=== PATIENT | male | born 2005 | race African-American/Black ===

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

== ENCOUNTER 2024-01-14 18:04 | Emergency (ER) | payer MEDICAID ==
[~2024-01-14] VITALS: Ht 180.3 cm; Wt 89.1 kg
[~2024-01-14 18:04] MED LIST: CYCL-839 PO; IBUP-1455 PO
[2024-01-14 22:32] VITALS: BP 118/76; PULSE 72; RESP 16; TEMP 98.4
[2024-01-14] MEDS ORDERED: HYDR2.5C39 TOP (22:35)
[2024-01-14] MEDS ORDERED: IBUP-1456 PO (22:35)
[2024-01-14 22:54] VITALS: O2SAT 98
== END 2024-01-14 23:03 | disposition home or self-care (01) ==
LOC: ER 18:04
DX: K64.4 Residual hemorrhoidal skin tags (principal)

== ENCOUNTER 2024-08-24 15:16 | Emergency (ER) | payer MEDICAID ==
[~2024-08-24] VITALS: Ht 180.3 cm; Wt 79.7 kg
[~2024-08-24 15:16] MED LIST changes: +HYDR2.5C39 TOP; +IBUP-1456 PO
[2024-08-24] MEDS: ONDANSETRON ODT 4 MG TAB PO ONE (19:42)
[2024-08-24] MEDS: ACETAMINOPHEN 325 MG TAB PO ONE (19:43)
[2024-08-24] MEDS ORDERED: ZOFR4T PO (19:44)
[2024-08-24] MEDS ORDERED: ACET500T58 PO (19:44)
--- NOTE | 2024-08-24 19:45 | ED.PDOC ---
History of Present Illness HPI Comments 19-year-old male presents to ER with complaints of flu-like symptoms x4 days. Patient reports he has been experiencing intermittent fever, nausea/vomiting/diarrhea, body aches, dry cough and decreased appetite x 4 days. He rates his current body aches pain a 7/10. Denies use of medications for current symptoms. Patient also states he had a nosebleed earlier today. Patient presents to ER ambulatory on arrival, alert oriented x4, with steady gait, in no distress and is noted to have a low-grade fever on arrival at 99.7 F, with no nose bleeding noted. Denies shortness of breath, headache, dizziness, neck pain, chest pain, hemoptysis, hematemesis, abdominal pain, known exposure to sick contacts, changes in urination, bloody diarrhea or any further symptoms/complaints Chief Complaint: Flu like Time Seen by MD: 18:12 Primary Care Provider: UNKNOWN Reviewed Notes: Nurses Notes, Medications, Allergies Information Source: Patient Mode of Arrival: Ambulatory Past Medical History PAST MEDICAL HISTORY: Denies Surgical History: Denies all surgeries Family History Family History: Unknown Social History Smoker: Non-Smoker Alcohol: Denies ETOH Use Drugs: Denies Drug Use Lives In: Home Constitutional: See HPI EENTM: See HPI Respiratory: See HPI Cardiovascular: No Symptoms Reported Gastrointestinal: See HPI Genitourinary: No Symptoms Reported Neurological: No Symptoms Reported Musculoskeletal: No Symptoms Reported Integumentary: No Symptoms Reported Allergic/Immunocompromised: others (DENIES) Hematologic/Lymphatic: No Symptoms Reported Endocrine: No Symptoms Reported Psychiatric: No symptoms Reported Physical Exam General Appearance: No Apparent Distress, Normal HEENT: Normal ENT Inspection, PERRL/EOMI, Pharynx Normal, TMs Normal Neck: Full Range of Motion, Non-Tender, Normal Respiratory: Chest Non-Tender, Lungs Clear, No Accessory Muscle Use, No Respiratory Distress, Normal Breath Sounds Cardiovascular: No Murmur, No Gallop, Regular Rate/Rhythm Breast Exam: Deferred Gastrointestinal: Non Tender, No Pulsatile Mass, Soft Genitalia: Deferred Pelvic: Deferred Rectal: Deferred Extremities: Normal capillary refill, Normal range of motion Neurologic: Alert, bath tester II-XII nml as Tested, No Motor Deficits, Normal Affect, Normal Mood, No Sensory Deficits Cerebellar Function: Normal Reflexes: Normal Skin: Dry, Normal Color, Warm Peripheral Pulses: 2+ Radial (R), 2+ Radial (L), 2+ Brachial (R), 2+ Brachial (L) Lymphatic: No Adenopathy Was a procedure done? Was a procedure done?: No Sedation Sedation?: No Fever Differential Dx Differential Diagnosis: Pneumonia, Sepsis, Pharyngitis, Other (COVID-19) X-Ray, Labs, Meds, VS Vital Signs Date Time Temp Pulse Resp B/P (MAP) Pulse Ox O2 Delivery O2 Flow Rate FiO2 08/24/24 20:05 100.4 100.4 08/24/24 18:26 96 14 98 Room Air 08/24/24 18:26 99.7 96 14 125/72 (89) 98 99.7 08/24/24 15:54 99.7 96 14 125/72 (89) 98 Lab Test 08/24/24 19:42 Range/Units Influenza Type A Antigen Positive Negative Influenza Type B Antigen Negative Negative SARS-CoV-2 Antigen (Rapid) Negative NEGATIVE Current Medications Medications (Trade) Dose Ordered Sig/Edward Route Start Time Stop Time Status Last Admin Acetaminophen (Tylenol Tablet) 650 mg ONCE ONCE PO 08/24/24 19:45 08/24/24 19:46 DC 08/24/24 19:43 Ondansetron HCl (Zofran Po) 4 mg ONCE ONCE PO 08/24/24 19:45 08/24/24 19:46 DC 08/24/24 19:42 SWAB RESULTS REVIEWED-INFLUENZA A POSITIVE Hep-Lock IV ordered NS 1 L IV ordered Zofran 4 mg p.o. ordered Tylenol 650 mg p.o. ordered Patient had improvement in symptoms, tolerating p.o. intake well and in no distress prior to discharge Diet education discussed Advised to follow up with PCP in 1-2 days Patient verbalized understanding and agreeable with current plan of care Advised to return to ER immediately if symptoms worsen Time of 1ST Reevaluation: 19:20 Reevaluation 1ST: N/A Time of 2ND Reevaluation: 21:38 Reevaluation 2ND: Improved Patient Education/Counseling: Diagnosis, Treatment, Prognosis, Need For Follow Up Family Education/Counseling: No Family Present Departure 1 Departure Time of Disposition: 21:40 Impression: Primary Impression: Influenza A Disposition: 01 HOME / SELF CARE / HOMELESS Condition: Stable e-Prescriptions Oseltamivir Phosphate (Tamiflu) 75 Mg Cap 1 CAP PO BID for 5 Days, #10 CAP 0 Refills Prov: PABLO CARBONE 08/24/24 Ondansetron Odt 4MG Tab (ZOFRAN PO) 4 Mg Tb 4 MG PO Q8HPRN, #10 TAB 0 Refills ODT TAB-DISSOLVE IN MOUTH, THEN SWALLOW Prov: PABLO CARBONE 08/24/24 Acetaminophen (Acetaminophen) 500 Mg Tab 500 MG PO Q4HPRN, #30 TAB 0 Refills Prov: PABLO CARBONE 08/24/24 Discharged With: Self Critical Care Note Critical Care Time?: No Stability Stability form required: No Heart Score Heart Score: Heart Score Response (Comments) Value History N/A 0 EKG N/A 0 Age N/A 0 Risk Factors N/A 0 Troponin N/A 0 Total 0 PABLO CARBONE Aug 24, 2024 19:45
[2024-08-24] MEDS: SODIUM CHLORIDE 0.9% 1,000 ML IV ONE (20:42)
[2024-08-24 21:18] LABS: COVID19 ANTIGEN SOFIA FIA NEGATIVE (NEGATIVE)
[2024-08-24 21:25] LABS: Rapid Influenza A Positive (Negative); Rapid Influenza B Negative (Negative)
[2024-08-24] MEDS ORDERED: OSEL75CA5 PO (21:25)
[2024-08-24 22:53] VITALS: BP 119/79; PULSE 73; RESP 16; TEMP 100; O2SAT 96
== END 2024-08-24 22:58 | disposition home or self-care (01) ==
LOC: ER 15:16
DX: J10.1 Influenza due to other identified influenza virus with other respiratory manifestations (principal); Z20.822 Contact with and (suspected) exposure to COVID-19
CPT/HCPCS: 36415; 87426; 87804; 96360; 96361; 99283; J7030; Q0162